=== PATIENT | male | born 1970 | race African-American/Black ===

== ENCOUNTER 2017-07-11 11:16 | Emergency (ER) | payer MEDICAID ==
[~2017-07-11] VITALS: Ht 180.3 cm; Wt 128.6 kg
[2017-07-11 11:22] VITALS: BP 132/80; TEMP 98.2
[2017-07-11 12:19] LABS: COLLECTION METHOD CLEAN CATCH
[2017-07-11 12:25] LABS: MUCOUS Present /lpf; PH 5 (5-8); SQUAMOUS EPITHELIAL 0-2 /hpf; URINE APPEARANCE Clear; URINE BACTERIA None Seen /hpf; URINE BILIRUBIN Negative (NEGATIVE); URINE BLOOD 1+ (NEGATIVE); URINE COLOR Yellow; URINE GLUCOSE Negative (NEGATIVE); URINE KETONE Negative (NEGATIVE); URINE LEUKOCYTE ESTERASE Negative (NEGATIVE); URINE PROTEIN(semi-quant) Negative (NEGATIVE); URINE RBC 0-2 /hpf; URINE UROBILINOGEN Negative (NEGATIVE); URINE WBC 0-2 /hpf
[2017-07-11 13:05] LABS: HIV 1/2 Antibodies Non-Reactive; HIV-1p24 Antigen Non-Reactive
[2017-07-11 13:32] VITALS: PULSE 68
[2017-07-11 14:46] LABS: CHLAMYDIA/TRACH by PCR Male NOT DETECTED; Neisseria Gon by PCR Male NOT DETECTED
[2017-07-13] MEDS ORDERED: VALTREX1 GM PO (19:22)
== END 2017-07-11 13:32 | disposition home or self-care (01) ==
LOC: COL.ER 11:16
PROVIDERS: Physician Assistant
DX: N50.89 Other specified disorders of the male genital organs (principal); R30.0 Dysuria; I10 Essential (primary) hypertension; F32.9 Major depressive disorder, single episode, unspecified; F41.9 Anxiety disorder, unspecified; Z98.890 Other specified postprocedural states

== ENCOUNTER 2017-08-03 10:08 | Emergency (ER) | payer MEDICAID ==
[~2017-08-03] VITALS: Ht 180.3 cm; Wt 130.0 kg
[~2017-08-03 10:08] MED LIST: VALTREX1 GM PO
[2017-08-03 10:25] VITALS: TEMP 98
[2017-08-03] MEDS ORDERED: KLONOPIN 1MG1 MG PO (10:33)
[2017-08-03] MEDS ORDERED: ZANTAC 300300 MG PO (10:33)
[2017-08-03] MEDS ORDERED: NORCO 325 MG-101 TAB PO (10:33)
[2017-08-03] MEDS ORDERED: ZOLOFT 100MG100 MG PO (10:34)
[2017-08-03] MEDS ORDERED: CARAFATE 1GM1 G PO (10:34)
[2017-08-03] MEDS ORDERED: VISTARIL50 MG PO (10:34)
[2017-08-03] MEDS ORDERED: COZAAR100 MG PO (10:35)
[2017-08-03 11:10] LABS: BASO % 0.6 % (0.0-2.0); EOS # 0.3 (0.0-0.7); EOS % 4.2 % (0-4.0); GRAN # 2.9 (1.4-6.5); GRAN % 47.3 % (42.2-75.2); HEMOGLOBIN 14.4 g/dl (13.5-18.0); LYMPH # 2.4 (1.2-3.4); LYMPH % 39.3 % (20.0-51.0); MEAN CELL VOLUME 85 fl (80.0-100.0); MEAN CORPUSCULAR HEMOGLOBIN 29 pg (27.0-31.0); MEAN CORPUSCULAR HGB CONC 34 g/dl (33.0-37.0); MEAN PLATELET VOLUME 10.7 fl (7.4-10.4); MONO # 0.5 (0.1-0.6); MONO % 8.1 % (1.7-9.3); PLATELET COUNT 183 K/mm3 (130-400); RED BLOOD COUNT 4.92 M/mm3 (4.20-5.60); REDCELL DISTRIBUTION WIDTH-CV 13.9 % (11.5-14.5)
[2017-08-03 11:19] LABS: ALANINE AMINOTRANSFERASE 37 U/L (21-72); ALKALINE PHOSPHATASE 46 U/L (50-136); ANION GAP 9 mmol/L (7-16); AST,SGOT 27 U/L (15-37); BILIRUBIN,TOTAL 0.4 mg/dL (0.0-1.0); BLOOD UREA NITROGEN 15 mg/dL (9-20); CARBON DIOXIDE 24 mmol/L (22-30); CHLORIDE 109 mmol/L (98-107); CREATININE, serum 1.06 mg/dL (0.66-1.25); GLUCOSE 100 mg/dL (74-106); LIPASE 187 U/L (23-300); POTASSIUM 4.1 mmol/L (3.4-5.0); SODIUM 142 mmol/L (137-145); TOTAL PROTEIN 7.1 gm/dL (6.4-8.2)
[2017-08-03 11:34] LABS: TROPONIN-I < 0.012 ng/mL (0.000-0.034)
[2017-08-03 15:30] VITALS: BP 136/78
[2017-08-03 16:33] VITALS: PULSE 80
== END 2017-08-03 16:34 | disposition home or self-care (01) ==
LOC: COL.ER 10:08
PROVIDERS: Emergency Medicine
DX: R20.2 Paresthesia of skin (principal); I10 Essential (primary) hypertension; F41.9 Anxiety disorder, unspecified; Z98.890 Other specified postprocedural states

== ENCOUNTER → 2017-08-05 | Outpatient (CLI) | payer MEDICAID ==
[~2017-08-05] VITALS: Ht 180.3 cm; Wt 131.1 kg
[~2017-08-05] MED LIST changes: +CARAFATE 1GM1 G PO; +COZAAR100 MG PO; +KLONOPIN 1MG1 MG PO; +NORCO 325 MG-101 TAB PO; +VISTARIL50 MG PO; +ZANTAC 300300 MG PO; +ZOLOFT 100MG100 MG PO
[2017-08-05 08:44] VITALS: BP 137/82; PULSE 78
[2017-08-05 09:59] VITALS: BP 127/78; PULSE 78
[2017-08-05 10:01] VITALS: BP 152/82; PULSE 117
[2017-08-05 10:03] VITALS: BP 132/75; PULSE 115
== END ==
LOC: COL.CARD 08:15
DX: R07.9 Chest pain, unspecified (principal); R94.31 Abnormal electrocardiogram [ECG] [EKG]
CPT/HCPCS: A9502; J2785